=== PATIENT | male | born 1950 | race Caucasian/White ===

== ENCOUNTER 2016-05-18 06:57 | Inpatient (IN) | payer MEDICARE, BC ==
[2016-05-13 13:44] LABS: HEMATOCRIT 42.5 % (40.0-51.0); HEMOGLOBIN 14.2 g/dL (13.6-17.8)
[2016-05-13 13:56] LABS: BUN (BLOOD UREA NITROGEN) 14 MG/DL (6-23); CALCIUM, SERUM 8.8 MG/DL (8.5-10.4); CHLORIDE, SERUM 109 MMOL/L (96-112); CO2 (CARBON DIOXIDE) 28 MMOL/L (24-34); CREATININE 1.14 MG/DL (0.70-1.30); GFR AFRICAN AMERICAN 78 ML/MIN (>=60); GFR NON AFRICAN AMERICAN 67 ML/MIN (>=60); GLUCOSE, SERUM 97 MG/DL (60-99); POTASSIUM, SERUM 4.2 MMOL/L (3.5-5.3); SODIUM, SERUM 143 MMOL/L (135-148)
--- NOTE | ~2016-05-18 | PREOPHP ---
PreOp History and Physical [facility] [address] [place]. [address] NAME: HEIDI VILLARREAL : 50 STATUS : ADM IN PAT#: [id number] AGE: 65 ADM/REG DATE : 05/18/16 MR#: [id number] REPORT SERV DATE: 05/18/16 DICTATED BY: ADAM RAMIREZ DATE: 05/18/16 REPORT STATUS : Draft TRANSCRIBED BY: MEENU DATE: 05/18/16 CHIEF COMPLAINT: Back pain and leg pain. HISTORY OF PRESENT ILLNESS: This is a 65-year-old male from the [facility], who presented to the office with back pain and leg pain that has been going on for several months. The patient has been treated for the last 30 years for off and on back problems and has seen Dr. Isidro Mckay, a nonoperative party supply specialist, who has treated him for several months with time, medications, injections, etc. The patient has plain x-rays revealing a grade 1 to grade 2 spondylolisthesis at L4-L5, severe disk degeneration at L4-L5 and L5-S1, there is collapse of the disk space. The MRI shows rather marked foraminal stenosis as would be expected at the abnormal levels, particularly at L4-L5. The patient has failed conservative cares and in need of a left and right L4-L5 hemilaminectomy, foraminotomy, facetectomy, a transforaminal diskectomy, and a Lauro posterior column osteotomy, a reduction of spondylolisthesis, an anterior interbody cage, a posterolateral interbody fusion, and the patient will also need a L5-S1 hemilaminectomy, foraminotomy, facetectomy, a transforaminal diskectomy, interbody fusion with an interbody cage, and finally posterior percutaneous instrumentation, L4-S1. Prior to surgery, risks, benefits, alternatives, and expectations have been explained in great detail. Consent form is signed. The patient has been identified today in the preop holding, and all questions were answered. The patient voiced understanding the risks, willingness to accept those, and requested to proceed with surgery. Also please note, because of the complexity of surgery, the need to identify correct level of surgery intraoperatively as well as desire to carry out the safest and most precise dissection with a least amount of radiation exposure, I feel intraoperative navigation is mandatory. PAST MEDICAL HISTORY: He has osteoarthritis, coronary artery disease and he has cardiac stents, hypercholesterolemia, prostatic hypertrophy, gastroesophageal reflux disease. PAST SURGICAL HISTORY: Cardiac stent placement. Arthroscopy of the knee and a total knee arthroplasty, bilateral by Dr. Ramirez. He has also had skin biopsies and cancer removal as well as a colonoscopy. CURRENT MEDICATIONS: Fenofibrate, Flomax, gabapentin, meloxicam, Prilosec, oxycodone, and Ambien. ALLERGIES: HYDROCODONE. SOCIAL HISTORY: He is . 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 Never smoked. Does not use any alcohol. FAMILY HISTORY: Noncontributory, except that his mother did have diabetes and one sister had diabetes, his father had coronary artery disease. REVIEW OF SYSTEMS: PreOp History and Physical [address] [address] NAME: HEIDI VILLARREAL : 50 STATUS : ADM IN [facility]#: [id number] AGE: 65 ADM/REG DATE : 05/18/16 MR#: [id number] REPORT SERV DATE: 05/18/16 DICTATED BY: ADAM RAMIREZ DATE: 05/18/16 REPORT STATUS : Draft TRANSCRIBED BY: MEENU DATE: 05/18/16 Otherwise, completely negative. PHYSICAL EXAMINATION: VITAL SIGNS: He is 5 feet and 8 inches and 200 pounds, BMI is 30.4. GENERAL: He is alert, cooperative, well oriented, ambulates independently. HEENT: Grossly normal. LUNGS: Clear to auscultation. HEART: Rate is regular and rhythmic. ABDOMEN: Soft with good bowel sounds. No peritoneal signs are noted. MUSCULOSKELETAL: The spine itself has some deformity. There is an easy palpable step-off in the midline at L4-L5. He has very limited range of motion due to pain particularly with extension. He cannot heel walk or toe walk. His tibialis anterior and EHL is 4/5 on the left and is 4+/5 on the right. Gastrocsoleus is 5/5. There is a loss of Achilles reflex. The patellar reflexes are 1/4. There is no dermatomal sensory deficit, except on the left L5. There is decreased sensation to pinwheel on the L5 distribution. Straight leg raising signs are negative. Femoral nerve stretch tests are negative. Handy signs are negative. JARETT signs are negative. ORTHOPEDIC: There is no pain with moving hips, knees, or ankles. There are pulses in all four extremities. No abnormal skin lesions are found. ASSESSMENT AND RECOMMENDATIONS: As listed above. /MODL Adam Ramirez D.O. / [id number] CC: Abundio Mary M.D.
--- NOTE | ~2016-05-18 | CN ---
Consultation Report [facility] [address] [place]. [address] NAME: HEIDI ARMENDARIZ : 50 STATUS : ADM IN [facility]#: [id number] AGE: 65 ADM/REG DATE : 05/18/16 MR#: [id number] REPORT SERV DATE: 05/19/16 DICTATED BY: ELYSSA GREENE DATE: 05/19/16 REPORT STATUS : Draft TRANSCRIBED BY: MODAvery DATE: 05/19/16 NEPHROLOGY CONSULT DATE OF CONSULTATION: 05/19/2016 REASON FOR CONSULT: Acute kidney injury. HISTORY OF PRESENT ILLNESS: Mr. Armendariz is a 65-year-old white male without previous knowledge of chronic kidney disease. On preop testing 05/13/2016, creatinine was 1.1. He is postop day 1 L-spine fusion for spinal stenosis. His creatinine yesterday was 1.3, today it is 1.5. He is nonoliguric without a Boyd catheter. He had bilateral knee replacements in 2008 and has been on daily buwz-wwj-uzwznom NSAIDs since that time. He has BPH followed by Urology, without TURP and normal prostate biopsies x2. PAST MEDICAL HISTORY: 1. Probable chronic kidney disease, baseline creatinine 1.1. 2. Osteoarthritis with bilateral knee replacements in 2008, now postop day 1 L4-S1 fusion for spinal stenosis. 3. Atherosclerotic cardiovascular disease, status post PCI. 4. Hyperlipidemia. 5. BPH without TURP. MEDICATIONS: On admission: Aspirin ,Welchol, Colace, Lofibra, Proscar, Neurontin, meloxicam 15 mg daily, multivitamin, Prilosec, Percocet, Flomax, and Ambien. FAMILY HISTORY: No ESRD. SOCIAL HISTORY: Nonsmoker. . Lives in [place], [place]. REVIEW OF SYSTEMS: Significant for nocturia, chronic knee arthritis, and heavy OTC and prescription NSAID use. PHYSICAL EXAMINATION: VITAL SIGNS: Temperature 98.6, pulse 72, respirations 18, blood pressure 127/60, 96% sat on 3 L per nasal cannula. 3743 mL of intake with 1300 mL of urine output. GENERAL: He is a pleasant white male, awake, alert, oriented, and cooperative with the exam. NEURO: Exam is grossly nonfocal. He is sitting up in a chair, in no distress. Good historian. Mood and affect are appropriate. HEENT: Sclerae without icterus. Conjunctivae not injected. Oropharynx is clear. NECK: No JVD. LUNGS: He has clear lungs anteriorly without dyspnea or tachypnea, on O2 per nasal cannula. CARDIAC: Regular rate and rhythm. No rub, murmur, or gallop. ABDOMEN: Soft, nontender, nondistended. Bowel sounds present throughout without rebound, Consultation Report [address] [place]. [address] NAME: HEIDI ARMENDARIZ : 50 STATUS : ADM IN PAT#: [id number] AGE: 65 ADM/REG DATE : 05/18/16 MR#: [id number] REPORT SERV DATE: 05/19/16 DICTATED BY: ELYSSA GREENE DATE: 05/19/16 REPORT STATUS : Draft TRANSCRIBED BY: MEENU DATE: 05/19/16 guarding, or peritoneal signs. EXTREMITIES: Without edema. SKIN: Exam without rash. : Exam is deferred. He has clear yellow urine in the Boyd catheter. MUSCULOSKELETAL: Exam shows previous knee replacements. He is postop day 1 back surgery. Wound not examined by me. LABORATORY DATA: Sodium 142, potassium 4.3, bicarb 26, BUN 22, creatinine 1.5, GFR 49 mL/minute, calcium 8.4, hemoglobin 13.7. White count 8.4000 and platelets 143,000. ASSESSMENT/PLAN: Mr. Armendariz likely has underlying chronic kidney disease stage 2 with a baseline creatinine of 1.1. He has now developed nonoliguric acute kidney injury, postop day 1 L-spine fusion. Other medical history is as outlined above. I suspect he likely has chronic kidney disease from chronic use of NSAIDs since 2008 for his osteoarthritis. He has now suffered a mild acute tubular necrosis injury from renal hypoperfusion from anesthesia and surgery. His Mobic is on hold. Check urinalysis and urine sodium. Keep Boyd for another day. Hopefully, renal function will recover to previous baseline. He will likely need Outpatient Nephrology followup at the time of discharge. He will also likely need to reduce or eliminate his OTC NSAID use other than daily aspirin in the future. We will follow with you. Thank you for the consult. CYRUS/MEENU Elyssa Greene M.D. / [id number] CC: Abundio Mary M.D.
--- NOTE | ~2016-05-18 | OP ---
Record Of Operation [facility] [address] [place]. [address] NAME: HEIDI VILLARREAL : 50 STATUS : ADM IN [facility]#: [id number] AGE: 65 ADM/REG DATE : 05/18/16 MR#: [id number] REPORT SERV DATE: 05/18/16 DICTATED BY: ADAM RAMIREZ DATE: 05/18/16 REPORT STATUS : Draft TRANSCRIBED BY: MODL DATE: 05/18/16 DATE OF PROCEDURE: 05/18/2016 PREOPERATIVE DIAGNOSES: 1. Grade 2 spondylolisthesis, severe spinal stenosis, L4-5. 2. Severe disk degeneration, spinal stenosis, L5-S1. 3. Iatrogenic instability secondary to the need for complete facetectomy, L5-S1. POSTOPERATIVE DIAGNOSES: 1. Grade 2 spondylolisthesis, severe spinal stenosis, L4-5. 2. Severe disk degeneration, spinal stenosis, L5-S1. 3. Iatrogenic instability secondary to the need for complete facetectomy, L5-S1. PROCEDURES: 1. Microscopic navigation-assisted surgery. 2. Left and right L4-5 hemilaminectomy, foraminotomy, facetectomy. 3. Lauro osteotomy L4 (posterior column). 4. Transforaminal diskectomy L4-5. 5. Anterior interbody cage insertion, posterolateral interbody fusion with local bone graft, allograft L4-5. 6. Left L5-S1 hemilaminectomy, foraminotomy, and facetectomy. 7. Sacral dome osteotomy S1 (posterior column). 8. Transforaminal diskectomy. 9. Anterior interbody cage insertion and posterolateral interbody fusion with local bone graft allograft. 10.Posterior percutaneous Voyager segmental spinal instrumentation L4 to S1. SURGEON: Adam Ramirez D.O. PICKLING DRUM OPERATOR: Sam. ANESTHESIA: General. BLOOD LOSS: 150 mL. DESCRIPTION OF PROCEDURE: Antibiotic prophylaxis given. Neurophysiology monitoring lead inserted. The patient was brought to the operative suite, where general anesthetic including endotracheal intubation was administered. Boyd catheter was placed with sterile technique. The patient was placed prone on a Jack spine frame. Bony prominences were carefully padded. Thoracolumbar spine was scrubbed with Hibiclens solution. DuraPrep was painted. Sterile drapes applied. Because of the complexity of surgery and the need to identify correct level of surgery intraoperatively as well as the desire to carry out the safest and most precise dissection, I felt intraoperative navigation was mandatory. Record Of Operation [facility] [address] [place]. [address] NAME: HEIDI VILLARREAL : 50 STATUS : ADM IN PAT#: [id number] AGE: 65 ADM/REG DATE : 05/18/16 MR#: [id number] REPORT SERV DATE: 05/18/16 DICTATED BY: ADAM RAMIREZ DATE: 05/18/16 REPORT STATUS : Draft TRANSCRIBED BY: MEENU DATE: 05/18/16 A small stab wound was carried out over the right posterosuperior iliac spine. A percutaneous pin with navigational frame attached was inserted in the PSIS. Intraoperative CT scan with O-arm was obtained. CT information used to register the navigational system. With navigational assistance, I identified the L4-5 level on the right. Just lateral to the facet joint, a 2.5 cm skin incision was carried out. A blunt navigated probe was placed through the fascia muscle and docked over the facet joint. Muscle dilators were inserted followed by placement of a tubular retractor attached to an arm mount table. The microscope was sterilely draped and used throughout the remainder of the procedure. With navigational assistance, I identified the top of the pedicle of L4, the inferior pedicle of L4, and the superior pedicle of L5. I worked from lateral to medial and I removed the complete superior articular process of L5 down to the top of the pedicle, the entire inferior articular process of L4, the lamina of L4, and the pars interarticularis. A complete facetectomy was carried out. A Lauro osteotomy was also completed with a sony bur and Kerrison rongeur. The exiting L4 nerve root was very severely compressed by a combination of ligamentum flavum hypertrophy disk that had rolled behind the body of L4. A transforaminal diskectomy was carried out with curettes, rongeurs, and disk francisco. The wound was irrigated. An intradiscal trial was carried out. A small amount of local bone graft was placed in the interbody space. A Capstone 9 mm x 26 mm cage was inserted just on the right side. Some additional bone graft was placed just lateral to the cage. This was accounting for the posterolateral interbody fusion on the right side. The retractor was removed. I then moved to the left side and I carried out another 2.5 to 3 cm skin incision just lateral to the facet joint at L4-5. Once again, I completed the same identical placement of tubular retractor. A microscopic and navigation-assisted hemilaminectomy, foraminotomy, facetectomy, Lauro osteotomy, a transforaminal diskectomy, and once again, I placed another cage on the right side, the manner it was done on the left because this is grade 2 spondylolisthesis and there was a rather unstable segment. Additional bone graft was packed in between the two cages on the left and right sides. After the posterolateral interbody fusion, the wounds were irrigated and the retractor was removed. I then extended the skin incision distally another 2.5 cm and once again, placed a blunt navigated probe through this fascia muscle and docked over the facet joint of L5-S1. Once again, I placed a tubular retractor and used the same identical technique and carried out a complete lateral to medial hemilaminectomy, foraminotomy, and facetectomy at L5-S1. Again, the top portion of the pedicle and a portion of the posterior superior aspect of vertebral body of S1 had to be removed with a sacral dome osteotomy in order to be able to enter the disk space appropriately without causing compression or impingement on the exiting L5 nerve root. After completing the L5-S1 hemilaminectomy, foraminotomy, facetectomy, and the sacral dome osteotomy, I then completed a transforaminal diskectomy. Interbody cage was inserted. Posterolateral interbody fusion with local bone graft allograft was completed. Next, a percutaneous Voyager pedicle tap and screw child care lead teacher were used to tap the pedicle of L4-5 and S1 bilateral. Polyaxial Voyager screws 7.5 x 50 mm were inserted at L4-5 and S1 bilateral. After screw insertion, a 65-mm bashir contoured for lordosis was inserted through Record Of Operation [place] [id number] [facility] [place]. [address] NAME: HEIDI VILLARREAL : 50 STATUS : ADM IN [facility]#: [id number] AGE: 65 ADM/REG DATE : 05/18/16 MR#: [id number] REPORT SERV DATE: 05/18/16 DICTATED BY: ADAM RAMIREZ DATE: 05/18/16 REPORT STATUS : Draft TRANSCRIBED BY: MODAvery DATE: 05/18/16 the top portion of the screw extenders, the bashir reduced into the tulip of the pedicle screw. The set screw was inserted and tightened with a torque wrench providing rigid stability. Intraoperative CT scan with O-arm repeated showing good position of all implants. The fascial openings were closed with interrupted #1 Vicryl suture, the subcutaneous tissue was closed with 2-0 Vicryl suture, 2-0 vertical mattress and nylon suture used for skin closure. Sterile dressings applied. The patient was awakened, extubated, and taken to recovery room in satisfactory condition having tolerated the procedure well. Sponge, needle, and instrument counts were correct. No intraoperative complications noted. GUSTAVO/MEENU Adam Ramirez D.O. / [id number] CC: Adam Ramirez D.O.
--- NOTE | ~2016-05-18 | DS ---
Discharge Summary [facility] [address] [place]. [address] NAME: HEIDI VILLARREAL : 50 STATUS : DIS IN PAT#: [id number] AGE: 65 ADM/REG DATE : 05/18/16 MR#: [id number] REPORT SERV DATE: 05/28/16 DICTATED BY: ADAM RAMIREZ DATE: 05/28/16 REPORT STATUS : Draft TRANSCRIBED BY: MODAvery DATE: 05/28/16 Data Collection from hospitalization DISCHARGE DIAGNOSES: 1. Grade 2 spondylolisthesis and severe spinal stenosis, L4-5. 2. Severe disk degeneration, spinal stenosis, L5-S1. 3. Iatrogenic instability secondary to the need for complete facetectomy, L5-S1. 4. Benign prostatic hypertrophy. 5. Hyperlipidemia. 6. Osteoarthritis. 7. Atherosclerotic cardiovascular disease. 8. Probable chronic kidney disease. CONSULTATION: Dr. Miguel Nam. PROCEDURES: Microscopic navigation-assisted surgery. Left and right L4-5 hemilaminectomy, foraminotomy, and facetectomy. Lauro osteotomy, L4 (posterior column). Transforaminal diskectomy, L4-5. Anterior interbody cage insertion, posterolateral interbody fusion with local bone graft, allograft, L4-5. Left L5-S1 hemilaminectomy, foraminotomy, and facetectomy. Sacral dome osteotomy, S1 (posterior column). Transforaminal diskectomy, anterior interbody cage insertion and posterolateral interbody fusion with local bone graft, allograft. Posterior percutaneous Voyager segmental spinal instrumentation, L4-S1, 05/18/2016. PATHOLOGY: Lumbar bone and tissue, P8-A5-cmaqpyosc of hyaline cartilage with focal degenerative changes, fibrous connective tissue, skeletal muscle, and bone present. DISCHARGE MEDICATIONS: Tylenol 500 mg every four hours as needed, aspirin 81 mg daily, Welchol 1250 mg twice a day, Lofibra 134 mg at bedtime, Proscar 5 mg every morning, Neurontin 300 mg every 8 hours, Robaxin 500 mg every 8 hours, multivitamins one tablet daily, Prilosec 40 mg every morning, Roxicodone 5-15 mg every four hours as needed, and Flomax 0.4 mg twice a day. CONDITION ON DISCHARGE: Stable. DISPOSITION: The patient was discharged home on a low-fat diet with activities as instructed. He would follow up with me, 06/02/[address] Miguel Nam, 06/04/2016. HOSPITAL COURSE: This is a 65-year-old man, who presented to the office with back pain and leg pain that had been going on for several months. The patient had been treated over the last 30 years for on and off back problems. He had seen Dr. Isidro Mckay, who is a nonoperative center specialists, who had treated him for several months with time, medication, and injections. The patient had plain x-rays revealing grade 1 to grade 2 spondylolisthesis at L4-L5 and severe disk degeneration at L4-L5 and L5-S1. There was collapse of the disk space. MRI showed rather marked foraminal stenosis as would be expected at the abnormal levels, particularly at L4-L5. The patient had failed conservative care and it was elected to proceed with surgical intervention. He was admitted to the hospital for further Discharge Summary [address] [address] NAME: HEIDI VILLARREAL : 50 STATUS : DIS IN PAT#: [id number] AGE: 65 ADM/REG DATE : 05/18/16 MR#: [id number] REPORT SERV DATE: 05/28/16 DICTATED BY: ADAM RAMIREZ DATE: 05/28/16 REPORT STATUS : Draft TRANSCRIBED BY: MEENU DATE: 05/28/16 evaluation and treatment. Upon admission, he was taken to the operating room, where he underwent the above-mentioned procedure. He tolerated this well and there were no complications. On postop day #1, he was doing well. He had no complaints of leg pain. He had no nausea or vomiting. He had the new onset of mild renal insufficiency. He was evaluated by Physical Therapy. He was seen in consultation by Dr. Miguel Nam regarding acute kidney injury. The patient has no knowledge of chronic kidney disease. On preoperative testing on 05/13/2016, creatinine was 1.1. The patient does have benign prostatic hypertrophy and is followed by Urology without TURP. He had normal prostate biopsies x2. Creatinine level was now 1.5. It was felt that the patient likely has underlying chronic kidney disease stage 2 with baseline creatinine 1.1. He had now developed nonoliguric acute kidney injury postoperatively. It was suspected that his chronic kidney disease is from chronic use of NSAIDs since 2008 for his osteoarthritis. He has now suffered a mild acute tubular necrosis injury from renal hypoperfusion from anesthesia and surgery. His Mobic is on hold. Urinalysis was going to be checked as well as urine sodium. Boyd catheter would remain in place for another day. We hoped that his renal function would recover to previous baseline. He would likely need to reduce or eliminate his tmee-pep-ibqwtcu NSAID use other than daily aspirin in the future. On postop day #2, he continued to do well. He was passing flatus. Discharge planning was performed. On 05/21/2016, he did have a bowel movement. He was transferring okay. He was ambulating. He had no complaints of leg pain. His Mobic remained on hold. Boyd catheter was removed. Renal function was stable. Discharge instructions were given. Due to his improved and stable condition, he was discharged home with the above-stated instructions. Information collected by: Cici Valle I submit the above information as my discharge summary. TG/MODL Adam Ramirez D.O. / [id number] CC: Abundio Mary M.D. Nathan Chamberlain, M.D.
[~2016-05-18 06:57] MED LIST: ACET500CAP PO; AMB10 PO; ASAB PO; DCN100 PO; FLOMAX4 PO; LOFIBRA134 MG PO; MOBIC15 MG PO; MULTIPLE VIT PO; NABUMETONE750 MG PO; NEUR300 PO; PCET PO; PEP20 PO; PRILOSEC40 MG PO; PROSCAR5 PO; STOOL SOFTEN240 MG PO; WELCHOL 625 MG625 MG PO
[2016-05-18 14:55] LABS: BASOPHILS 0.2 %; BASOPHILS ABSOLUTE 0.02 10/3/uL (0.0-0.16); EOSINOPHILS 0.1 %; EOSINOPHILS ABSOLUTE 0.01 10/3/uL (0.0-0.53); HEMATOCRIT 40.8 % (40.0-51.0); HEMOGLOBIN 13.9 g/dL (13.6-17.8); IMMATURE GRANULOCYTES 0.7 %; IMMATURE GRANULOCYTES ABSOLUTE 0.06 10/3/uL (0.0-0.11); LYMPHOCYTES ABSOLUTE 1.45 10/3/uL (0.67-4.30); MEAN CORPUS HGB CONC 34.1 g/dL (32.0-36.0); MEAN CORPUSCULAR HEMOGLOB 30.4 pg (26.0-34.0); MEAN CORPUSCULAR VOLUME 89.3 fL (80-100); MEAN PLATELET VOLUME 10.4 fL (9.2-13.0); MONOCYTES 2.6 %; MONOCYTES ABSOLUTE 0.24 10/3/uL (0.21-1.20); NEUTROPHILS 80.4 %; NEUTROPHILS ABSOLUTE 7.28 10/3/uL (2.02-8.40); PLATELET COUNT 152 10/3/uL (150-400); RBC DISTRIBUTION WIDTH 13.8 % (12.0-16.0); RED CELL COUNT 4.57 10/6/uL (4.7-6.1); WHITE BLOOD CELLS 9.1 10/3/uL (4.5-10.5)
[2016-05-18 14:56] LABS: MANUAL DIFF NO %
[2016-05-18 15:00] LABS: CALCIUM, SERUM 8.5 MG/DL (8.5-10.4); CHLORIDE, SERUM 108 MMOL/L (96-112); CO2 (CARBON DIOXIDE) 25 MMOL/L (24-34); CREATININE 1.35 MG/DL (0.70-1.30); GFR AFRICAN AMERICAN 63 ML/MIN (>=60); GFR NON AFRICAN AMERICAN 55 ML/MIN (>=60); POTASSIUM, SERUM 4.1 MMOL/L (3.5-5.3); SODIUM, SERUM 142 MMOL/L (135-148)
[2016-05-18 15:01] LABS: BUN (BLOOD UREA NITROGEN) 21 MG/DL (6-23); GLUCOSE, SERUM 145 MG/DL (60-99)
[2016-05-18 15:22] LABS: PLATELET ESTIMATE ADQ (ADEQUATE)
[2016-05-18 15:24] LABS: RBC MORPHOLOGY NORM (NORMAL)
[2016-05-19 04:58] LABS: BASOPHILS 0.1 %; BASOPHILS ABSOLUTE 0.01 10/3/uL (0.0-0.16); EOSINOPHILS 0 %; HEMATOCRIT 41.2 % (40.0-51.0); HEMOGLOBIN 13.7 g/dL (13.6-17.8); IMMATURE GRANULOCYTES 0.4 %; IMMATURE GRANULOCYTES ABSOLUTE 0.03 10/3/uL (0.0-0.11); LYMPHOCYTES 11.2 %; LYMPHOCYTES ABSOLUTE 0.94 10/3/uL (0.67-4.30); MEAN CORPUS HGB CONC 33.3 g/dL (32.0-36.0); MEAN CORPUSCULAR HEMOGLOB 30.2 pg (26.0-34.0); MEAN CORPUSCULAR VOLUME 90.9 fL (80-100); MEAN PLATELET VOLUME 11.1 fL (9.2-13.0); MONOCYTES 10.1 %; MONOCYTES ABSOLUTE 0.85 10/3/uL (0.21-1.20); NEUTROPHILS 78.2 %; NEUTROPHILS ABSOLUTE 6.58 10/3/uL (2.02-8.40); PLATELET COUNT 143 10/3/uL (150-400); RBC DISTRIBUTION WIDTH 13.9 % (12.0-16.0); RED CELL COUNT 4.53 10/6/uL (4.7-6.1); WHITE BLOOD CELLS 8.4 10/3/uL (4.5-10.5)
[2016-05-19 04:59] LABS: MANUAL DIFF NO %
[2016-05-19 05:13] LABS: BUN (BLOOD UREA NITROGEN) 22 MG/DL (6-23); CALCIUM, SERUM 8.4 MG/DL (8.5-10.4); CHLORIDE, SERUM 106 MMOL/L (96-112); CO2 (CARBON DIOXIDE) 26 MMOL/L (24-34); CREATININE 1.47 MG/DL (0.70-1.30); GFR AFRICAN AMERICAN 57 ML/MIN (>=60); GFR NON AFRICAN AMERICAN 49 ML/MIN (>=60); GLUCOSE, SERUM 131 MG/DL (60-99); POTASSIUM, SERUM 4.3 MMOL/L (3.5-5.3); SODIUM, SERUM 142 MMOL/L (135-148)
[2016-05-19 16:30] LABS: WBC (NOT ORDERED) (RFLEX) 0 (0-5)
[2016-05-19 16:50] LABS: ASCORBIC ACID (UR NOT ORDER) NEG (NEG); BILIRUBIN, URINE NEGATIVE (NEG); KETONE, URINE NEGATIVE (NEG); LEUKOCYTE ESTERASE(NOT OR NEG (NEG)
[2016-05-20 05:49] LABS: ALBUMIN 2.9 G/DL (3.5-5.0); CALCIUM, SERUM 8.3 MG/DL (8.5-10.4); CHLORIDE, SERUM 103 MMOL/L (96-112); CO2 (CARBON DIOXIDE) 26 MMOL/L (24-34); CREATININE 1.33 MG/DL (0.70-1.30); GFR AFRICAN AMERICAN 65 ML/MIN (>=60); GFR NON AFRICAN AMERICAN 56 ML/MIN (>=60); PHOSPHORUS, SERUM 1.2 MG/DL (2.5-4.5); POTASSIUM, SERUM 4.1 MMOL/L (3.5-5.3); SODIUM, SERUM 137 MMOL/L (135-148)
[2016-05-20 05:54] LABS: BUN (BLOOD UREA NITROGEN) 16 MG/DL (6-23); GLUCOSE, SERUM 103 MG/DL (60-99)
[2016-05-21 05:17] LABS: ALBUMIN 2.9 G/DL (3.5-5.0); BUN (BLOOD UREA NITROGEN) 16 MG/DL (6-23); CALCIUM, SERUM 8.6 MG/DL (8.5-10.4); CHLORIDE, SERUM 101 MMOL/L (96-112); CO2 (CARBON DIOXIDE) 27 MMOL/L (24-34); CREATININE 1.25 MG/DL (0.70-1.30); GFR AFRICAN AMERICAN 70 ML/MIN (>=60); GFR NON AFRICAN AMERICAN 60 ML/MIN (>=60); GLUCOSE, SERUM 106 MG/DL (60-99); PHOSPHORUS, SERUM 1.2 MG/DL (2.5-4.5); SODIUM, SERUM 134 MMOL/L (135-148)
[2016-05-21] MEDS ORDERED: METHOC500B PO (09:20)
[2016-05-21] MEDS ORDERED: OXYCOD PO (09:22)
== END 2016-05-21 16:40 | disposition home or self-care (01) | DRG 460 ==
LOC: SDC/OF 06:57 → PACU 14:35 → 3SO 16:39
PROVIDERS: Internal Medicine Nephrology; Orthopaedic Surgery Orthopaedic Surgery of the Spine
PROC: 4A11X4G Monitoring of Peripheral Nervous Electrical Activity, Intraoperative, External Approach (ICD-10-PCS; 2016-05-18)
PROC: 4A11X4G Monitoring of Peripheral Nervous Electrical Activity, Intraoperative, External Approach (ICD-10-PCS; 2016-05-18)
PROC: 0SG00AJ Fusion of Lumbar Vertebral Joint with Interbody Fusion Device, Posterior Approach, Anterior Column, Open Approach (ICD-10-PCS; principal; 2016-05-18 08:45)
PROC: 0ST20ZZ Resection of Lumbar Vertebral Disc, Open Approach (ICD-10-PCS; 2016-05-18 08:45)
PROC: 0SG00Z1 (ICD-10-PCS; 2016-05-18 08:45)
PROC: 0SG30Z1 (ICD-10-PCS; 2016-05-18 08:45)
DX: M51.37 Other intervertebral disc degeneration, lumbosacral region (principal); N17.9 Acute kidney failure, unspecified; N18.2 Chronic kidney disease, stage 2 (mild)
CPT/HCPCS: 36415; 80048; 80069; 81001; 82962; 84300; 85014; 85018; 85025; 86850; 86900; 86901; 87641; 88304; 88311; 93005; 97110-GP; 97116-GP; 97162-GP; A9270-GY; C1713; G8978-CK-GP; G8979-CJ-GP; J0690; J1170; J1644; J2250; J2370; J2405; J2550; J2710; J2765; J3010